=== PATIENT | female | born 1990 | race Caucasian/White ===

== ENCOUNTER 2018-02-05 16:59 | Inpatient (IN) ==
--- OUTSIDE RECORDS SUMMARY | 2018-02-05 17:05 | External Medical Summary | Continuity of Care Document ---
:1990 Author Organization [facility] Address [address] [place], [place] [address] Phone Care Team Providers Name Role Phone Daniel Joshua MD Unavailable Unavailable Allergies, Adverse Reactions, Alerts Substance Reaction Severity Status Sulfa (Sulfonamide Antibiotics) Unknown Active Medications Medication Instructions Dosage Effective Dates Status Comments (start - stop) 28 mg-0.8 take 1 Tablet by 5 MG - Active mg tablet ORAL route every day days 1-10 of cycle cephalexin 500 mg take 1 capsule by - No Longer capsule ORAL route 3 times Active every day for 7 days Problems Condition Effective Dates (start - stop) Clinical Status Follow-Up, Routine - Encntr screen for infections w sexl - mode of transmiss Encounter for screening for oth - infec/parastc diseases Encounter for suprvsn of normal - , first trimester Encounter for screening of - mother 10 weeks gestation of - Initiation of Oral Contraceptives - Active Irregular Bleeding Active Active Procedures Procedure Date Unknown Results Test Name Date and Time Measure Units Reference Range Abnormal Flag Comments Unknown Advance Directives Directive Yes / No Effective Date File Name Unknown Encounters Encounter Practice Location Reason(s) Diagnoses Date Provider Care Team Description For Visit Members Associates Rc Michelle In [facility] 8-201 [facility] [place], 7 700 [address] [place], [place], 120, [id number], [place], [place], tel: [phone] , [place]. tel: [phone] Jennifer Tatum Encntr screen for Aug-1 Michelle Referring In Womens infections w sexl 6-201 Tammy. Provider: Alysia LAYTON, mode of 7 700 Justine PO Box [facility], 700 1522, for screening for Kendall Rigoberto Terry, les infec/parastc , [facility] [address], [facility] 120, [place] 120, , for suprvsn of Rc Tatum, normal , [place], [place], tel: first [phone]. [facility] , . tel: for tel: [phone] screening of [id number] weeks gestation of Associates Rc Stan-0 Michelle Referring In Womens Follow-Up, Routine - Tammy. Provider: Alysia LAYTON, 6 700 Justine PO Box [facility] [place]c, 700 1522, [place] [address], [facility] Dr [place], 120, [place] 120, [id number], Rc Tatum, [place], [place], tel: [phone]. , [place]. tel: tel: [phone] Jennifer Tatum Aug- Michelle Referring In Womens 4-201 Tammy. Provider: Alysia LAYTON, 5 700 Tammy [address] Medical Michelle L, 1522, [address], [facility] [place], 120, Kend[place] [id number], Rc [facility] 120, Rc [place], tel: [phone] [place], , . [id number]. tel: tel: [phone] Jennifer Tatum Sep-2 Michelle Referring In Womens 9-201 Tammy. Provider: Alysia LAYTON, 5 700 Tammy [address] Medical Michelle L, 1522, [place] [address], [facility] [place], 120, Kend[place] [id number], Rc [facility] 120, [place] Rc [place], tel: [phone] [place], , . [id number]. tel: tel: [phone] Jennifer Tatum Mar-2 Michelle Referring In Womens 8-201 Tammy. Provider: Alysia LAYTON, 5 700 Justine PO Box Medical Jc, 700 1522, [place] [address], [facility] Center [address] HOP[place], 120, [place] 120, [id number], Rc Tatum, [place], [place], tel: [phone]. , . tel: tel: [phone] Jennifer Tatum Mar-0 Jc Referring In Womens 7-201 Justine. Provider: Alysia LAYTON, 4 700 Justine PO Box Medical Jc, 700 1522, [place] [address], [facility] Dr [place], 120, [place] 120, [id number], Rc Tatum, [place], [place], tel: [phone]. , . tel: tel: [phone] Family History Family Member Diagnosis Age At Onset No family history of Cardiovascular Disease No family history of Kidney Problems No family history of Ovarian Cancer No family history of Diabetes No family history of Pulmonary Embolism No family history of Lung Disease No family history of Uterine Cancer Maternal Grandmother Thyroid Disorder No family history of Epilepsy Close relative Cancer, breast No family history of Osteoporosis No family history of Stroke No family history of Colon Cancer No family history of Hypertension No family history of Venous Thrombosis Immunizations Vaccine Date Status Comments Influenza, seasonal, injectable, completed Source: New Immunization Record preservative free, 3 yrs or older Tdap completed Source: New Immunization Record Payers Payer name Insurance type Covered green party ID Authorization(s) ANNALEE SALMON [id number] [facility] [place] BL [id number] [facility] [place] SALMON [id number] Social History Type Description Quantity Date Captured Unknown Vital Signs Date / Height Weight BMI Pulse Blood Temperature Respiratory Body Head BMI Time: Rate Pressure Rate Surface Circumference percentile Area Unknown Chief Complaint And Reason For Visit Unknown Chief Complaint And Reason For Visit Reason For Referral Reason For Referral Unknown Plan Of Care Date Type Action Status Appointment Emily Rich BOOKED Future Order: Lab Order Pap Smear With HPV Reflex If ASCUS Ordered ([id number]) Date Type Problem Goal Intervention Status Start Date Unknown. History Of Present Illness Encounter Date Complaint History Of Present Illness This patient has no known history of present illness Functional Status Encounter Date Functional Assessment Cognitive Assessment Unknown Medications Administered Medication Instructions Dosage Effective Dates (start - stop) Status Comments Drug Treatment Unknown Instructions Date Instruction Additional Information HIV and other routine tests influenza vaccine environmental / work hazards travel use of any medications (including supplements, vitamins, herbs, OTC drugs) domestic violence seat belt use risk factors identified by history anticipated course of care nutrition and weight gain counseling, special diet toxoplasmosis precautions (cats / raw meat) sexual activity exercise indications for ultrasound childbirth classes / hospital facilities hospital registration genetic testing new ob handbook Zika virus assessment & precautions HIV and other routine tests influenza vaccine environmental / work hazards risk factors identified by history anticipated course of care nutrition and weight gain counseling, special diet toxoplasmosis precautions (cats / raw meat) sexual activity exercise indications for ultrasound travel use of any medications (including supplements, vitamins, herbs, OTC drugs) seat belt use childbirth classes / hospital facilities hospital registration genetic testing new ob handbook
--- OUTSIDE RECORDS SUMMARY | 2018-02-05 17:05 | External Medical Summary | Continuity of Care Document ---
:1990 Author Organization [facility] Address [address] [place], [place] [id number] Phone Care Team Providers Name Role Phone Daniel Joshua MD Unavailable Unavailable Allergies, Adverse Reactions, Alerts Substance Reaction Severity Status Sulfa (Sulfonamide Antibiotics) Unknown Active Medications Medication Instructions Dosage Effective Dates Status Comments (start - stop) 28 mg-0.8 mg take 1 Tablet by ORAL 5 MG - Active tablet route every day days 1-10 of cycle Problems Condition Effective Dates (start - stop) Clinical Status Follow-Up, Routine - Encounter for suprvsn of normal - , second trimester 23 weeks gestation of - Encntr screen for infections w sexl - mode of transmiss Encounter for screening for oth - infec/parastc diseases Encounter for suprvsn of normal - , first trimester Encounter for screening of - mother 10 weeks gestation of - Encounter for suprvsn of normal - , second trimester 19 weeks gestation of - Encounter for suprvsn of normal - , second trimester 19 weeks gestation of - Encounter for suprvsn of normal - , second trimester 14 weeks gestation of - Initiation of Oral Contraceptives - Active Irregular Bleeding Active Active Procedures Procedure Date OB Visit No Charge Results Test Name Date and Time Measure Units Reference Range Abnormal Flag Comments Unknown Advance Directives Directive Yes / No Effective Date File Name Unknown Encounters Encounter Practice Location Reason(s) Diagnoses Date Provider Care Team Description For Visit Members Jennifer Tatum Encounter for Nov-1 Michelle Referring In Womens suprvsn of normal 7-201 Tammy. Provider: Alysia LAYTON, , second 7 700 Justine [address] [id number] weeks Medical J[place], 700 1522, gestation of [facility], , [facility] Dr [address], 120, [place] 120, [id number], Rc Tatum, [place], [place], tel: [phone]. , [place]. tel: tel: [phone] Jennifer Tatum Encounter for Oct-1 Michelle Referring In Womens suprvsn of normal 9-201 Tammy. Provider: Alysia LAYTON, , second 7 700 Justine PO Box [id number] weeks Medical Jc, 700 1522, gestation of [facility], , [facility] Dr [place], 120, [place] 120, [id number], Rc Tatum, [place], [place], tel: [phone]. , [place]. tel: tel: [phone] Jennifer Tatum Encounter for Oct-1 Michelle Referring In Womens Ultrasound suprvsn of normal 9-201 Tammy. Provider: Alysia LAYTON, , second 7 700 Justine PO Box [id number] weeks Medical Jc, 700 1522, gestation of [facility], , [facility] Dr [place], 120, [place] 120, [id number], Rc Tatum, [place], [place], tel: [phone]. , [place]. tel: tel: [phone] Jennifer Tatum Encounter for Sep-1 Michelle Referring In Womens suprvsn of normal 4-201 Tammy. Provider: Alysia LAYTON, , second 7 700 Justine PO Box weeks Medical Jc, 700 1522, gestation of [facility], , [facility] Dr [address], 120, [place] 120, [id number], Rc Tatum, [facility], [place], tel: [phone]. , [place]. tel: tel: [phone] Jennifer Tatum Encntr screen for Aug- Michelle Referring In Womens infections w sexl 6-201 Tammy. Provider: Alysia LAYTON, mode of 7 700 Justine PO Box [facility], 700 1522, r for screening [facility] Mara, for oth , [facility] Dr [address]OP[place], infec/parastc 120, [place] 120, , diseasesEncounter Rc [place], for suprvsn of [place], [place], tel: normal , [phone]. [facility] , . tel: trimesterEncounte tel: [phone] r for [id number] screening of [id number] weeks gestation of Jennifer Tatum Stan-0 Michelle Referring In Womens Follow-Up, - Tammy. Provider: Alysia LAYTON, Routine 6 700 Justine PO Box Medical Jc, 700 1522, [place] [address], [facility] Dr [place], 120, [place] 120, [id number], Rc Tatum, [place], tel: [phone]. , [place]. tel: tel: [phone] Jennifer Tatum Aug- Michelle Referring In Womens 4-201 Tammy. Provider: Alysia LAYTON, 5 700 Tammy PO Box Medical Michelle L, 1522, [place] [address], [facility] [place], 120, [place] [id number], Rc [facility] 120, Rc [place], tel:[phone] [place], , . [id number]. tel: tel: [phone] Jennifer Tatum Sep-2 Michelle Referring In Womens 9-201 Tammy. Provider: Alysia LAYTON, 5 700 Tammy PO Box Medical Michelle L, 1522, [place] [address] Dr Mara, [facility], 120, [place] [id number], Rc [facility] 120, Rc [place], tel: [phone] [place], , . [id number]. tel: tel: [phone] Jennifer Tatum Mar-2 Michelle Referring In Womens 8-201 Tammy. Provider: Health CALIN, 5 700 Justine PO Box Medical Jc, 700 1522, [place] [address], [facility] [place], 120, [place] 120, [id number], Rc Tatum, [place], [place], tel: [phone]. , . tel: tel: [phone] Jennifer Tatum Mar-0 Jc Referring In Womens 7-201 Justine. Provider: Health CALIN, 4 700 Justine PO Box Medical Jc, 700 1522, [place] [address], [facility] Dr [place], 120, [place] 120, [id number], Rc Tatum, [place], [place], tel: [phone]. , . tel: tel: [phone] Family History Family Member Diagnosis Age At [...] Thrombosis Immunizations Vaccine Date Status Comments Influenza, injectable, completed Source: New Immunization Record quadrivalent, preservative free, 3 yrs or older Influenza, seasonal, injectable, completed Source: New Immunization Record preservative free, 3 yrs or older Tdap completed Source: New Immunization Record Payers Payer name Insurance type Covered alliance party ID Authorization(s) [facility] [place] BL [id number] [facility] BL [id number] [facility] [place] BL [id number] [facility] [id number] Social History Type Description Quantity Date Captured Alcohol Use Details No Caffeine Use Details Unknown Tobacco Use Status Unknown Smoking Status Never smoker Vital Signs Date / Height Weight BMI Pulse Blood Temperature Respiratory Body Head BMI Time: Rate Pressure Rate Surface Circumference percentile Area 120.00 21.6 /67 2017 lbs 0 mm[Hg] 3:17 kg/m PM eter (2) 8 3:09 kg/m PM eter (2) Chief Complaint And Reason For Visit Unknown Chief Complaint And Reason For Visit Reason For Referral Reason For Referral Unknown Plan Of Care Date Type Action Status Appointment Emily Rich BOOKED Future Order: Lab Order Pap Smear With HPV Reflex If ASCUS Ordered (WPMPap1) Future Order: Radiology Order Complete OB Ultrasound > 14 Ordered Weeks ([id number]) Date Type Problem Goal Intervention Status Start [...]
--- OUTSIDE RECORDS SUMMARY | 2018-02-05 17:05 | External Medical Summary | Continuity of Care Document ---
:1990 Author Organization [facility] Address [address] [place], [place] [phone] Phone Care Team Providers Name Role Phone [...] Irregular Bleeding Active Active Procedures Procedure Date Initial OB Visit No Charge - FARMWORK[facility] DAIRY OB Panel With An HIV Venpnctr fngr/heel/ear stick routne Urine Culture Infct antign, chlamydia trac, ampl Neisseria Gonorrhoeae, Amplification Cult, bactr, ident isolate, urine Culture typing, immunologic method Results Test Name Date and Time Measure Units Reference Range Abnormal Flag Comments Panel Description: OBSTETRIC PANEL WHITE BLOOD CELL 16.7 Thousand/uL 3.8-10.8 H COUNT 16:25:00 RED BLOOD CELL 4.28 Million/uL 3.80-5.10 N COUNT 16:25:00 HEMOGLOBIN 12.9 g/dL 11.7-15.5 N 16:25:00 HEMATOCRIT 38.1 % 35.0-45.0 N 16:25:00 MCV 89.0 fL 80.0-100.0 N 16:25:00 MCH 30.1 pg 27.0-33.0 N 16:25:00 MCHC 33.9 g/dL 32.0-36.0 N 16:25:00 RDW 12.4 % 11.0-15.0 N 16:25:00 PLATELET COUNT 333 Thousand/uL 140-400 N 16:25:00 MPV 11.1 fL 7.5-12.5 N 16:25:00 ABSOLUTE 00731 cells/uL 2313-1624 H NEUTROPHILS 16:25:00 ABSOLUTE 3323 cells/uL 850-3900 N LYMPHOCYTES 16:25:00 ABSOLUTE 1035 cells/uL 200-950 H MONOCYTES 16:25:00 ABSOLUTE 518 cells/uL 15-500 H EOSINOPHILS 16:25:00 ABSOLUTE 84 cells/uL 0-200 N BASOPHILS 16:25:00 NEUTROPHILS 70.3 % N 16:25:00 LYMPHOCYTES 19.9 % N 16:25:00 MONOCYTES 6.2 % N 16:25:00 EOSINOPHILS 3.1 % N 16:25:00 BASOPHILS 0.5 % N 16:25:00 ANTIBODY SCREEN, NO ANTIBODIES N RBC W/REFL ID, 16:25:00 DETECTED Reference range TITER AND AG No antibodies detected This assay is a screening test for the detection of red blood cell antibodies. The test is not to be used for pretransfusion screening or for the medical management of an alloimmunized . ABO GROUP A 16:25:00 RH TYPE RH(D) 16:25:00 POSITIVE RPR (DX) W/REFL NON-REACTIVE NON-REACTIV N TITER AND 16:25:00 E CONFIRMATORY TESTING HEPATITIS B NON-REACTIVE NON-REACTIV N SURFACE ANTIGEN 16:25:00 E RUBELLA ANTIBODY 2.81 index N Index (IGG) 16:25:00 Interpretation ----- <0.90 Not consistent with Immunity 0.90-0.99 Equivocal > or=1.00 Consistent with Immunity The presence of rubella IgG antibody suggests immunization or past or current infection withrubella virus.Test performed at [facility] [id number] [place] [address]Enniwxq r: JAE HE DO,MPH Panel Description: HIV 1/2 ANTIGEN/ANTIBODY,FOURTH GENERATION W/RFL HIV NON-REACTIVE NON-REACTIVE N HIV-1 antigen and HIV-1/HIV- 2 antibodies were AG/AB, 16:25:00 notdetected. There is no laboratory evidence of 4TH GEN HIVinfection. PLEASE NOTE: This information has been disclosed toyou from records whose confidentiality may beprotected by state law. If your state requires suchprotection, then the state law prohibits you frommaking any further disclosure of the informationwithout the specific written consent of the personto whom it pertains, or as otherwise permitted by law.A general authorization for the release of medical orother information is NOT sufficient for this purpose. For additional information please refer [email or web address]/faq/HGM937(This link is being provided for informational/educational purposes only.) The performance of this assay has not been clinicallyvalidated in patients less than 2 years old. REPORT COMMENT:FASTING:NOTest performed at [facility] [id number] [place] [address]Lkwseoid: JAE HE DO,MPH Panel Description: Bacteria identified in Urine by Culture CULTURE, URINE, 16:52:00 SEE NOTE A CULTURE, URINE, ROUTINE ROUTINE MICRO NUMBER: [id number] TEST STATUS: FINAL SPECIMEN SOURCE: URINE SPECIMEN QUALITY: ADEQUATE RESULT: 1,000-10,000 CFU/mL of Group B Streptococcus isolated Beta-hemolytic Streptococci are predictably susceptible to penicillin and other beta-lactams. Susceptibility testing not routinely performed. COMMENT: Erythromycin and clindamycin are not recommended for treatment of urinary tract infections, but clindamycin may be useful for treatment of rectovaginal colonization or infection. Any amount of group B Streptococcus in urine specimens obtained from females is a marker of genital tract colonization. If this patient is , please refer to ACOG guidelines for appropriate screening and management of women.REPORT COMMENT:RTest performed at [facility] [address] [address]Fluiydcl: JAE HE DO,MPH Panel Description: CHLAMYDIA/N. GONORRHOEAE RNA, TMA CHLAMYDIA NOT DETECTED NOT DETECTED N TRACHOMATIS RNA, 16:31:00 TMA NEISSERIA NOT DETECTED NOT DETECTED N GONORRHOEAE RNA, 16:31:00 TMA [id number] SEE NOTE This test was 16:31:00 performed using the APTIMA COMBO2 Assay([employer] The analytical performance characteristics of this assay, when used to test SurePath specimens havebeen determined by [employer]. Test performed at [facility] [address] [address]Wexflndp: JAE HE DO,MPH Panel Description: Pap Smear With HPV Reflex If ASCUS Document Advance Directives Directive Yes / No Effective Date File Name Unknown Encounters Encounter Practice Location Reason(s) Diagnoses Date Provider Care Team Description For Visit Members Associates Rc Armas screen for Michelle Referring In Womens infections w sexl 6-201 Tammy. Provider: [facility], mode of 7 700 Justine PO Box [facility], 370 0162, for screening for [facility], [facility] infec/parastc , [facility] Dr [place], [facility] 120, [place] 120, [id number], for suprvsn of Rc Tatum, normal , [place], [place], tel:[phone]. [id number] [facility]. tel: for tel: [phone] screening of [id number] weeks gestation of Associates Rc Stan-0 Michelle Referring In Womens Follow-Up, Routine 5-201 Tammy. Provider: Alysia LAYTON, 6 700 Justine PO Box Medical [place]c, 700 1522, [place] [address], [facility] [place], 120, [place] 120, [id number], Rc Tatum, [facility], [place], tel: [phone]. , [place]. tel: tel: [phone] Jennifer Tatum Oct-1 Michelle Referring In Womens 4-201 Tammy. Provider: Alysia LAYTON, 5 700 Tammy PO Box Medical Michelle L, 1522, [address] [facility] [address] Mara, [place], 120, [place] [id number], Rc, [facility] [place] 120, Rc [place], tel: [phone] [place], , [place]. [id number]. tel: tel: [phone] Jennifer Tatum Sep-2 Michelle Referring In Womens 9-201 Tammy. Provider: Alysia LAYTON, 5 700 Tammy PO Box Medical Michelle L, 1522, [address] [facility] [address] Mara, [place], 120, [place] [id number], Rc, [facility], [place] 120, [place] Rc [place], tel: [phone] [place], , [place]. [id number]. tel: tel: [phone] Jennifer Tatum Apr-2 Michelle Referring In Womens 8-201 Tammy. Provider: Health CALIN, 5 700 Justine PO Box Medical [place]c, 700 1522, [place] [address], [facility] [place], 120, [place] 120, [id number], Rc Tatum, [place], [place], tel: [phone]. , . tel: tel: [phone] Jennifer Tatum Apr-0 Jc Referring In Womens 7-201 Justine. Provider: Health CALIN, 4 700 Justine PO [facility] Jc, 700 1522, [place] Medical Dr Mara, [facility] Dr [place], 120, [place] 120, [id number], Rc Tatum, [place], tel: [phone]. [id number] , [place]. tel: tel: [phone] Family History Family Member Diagnosis Age At [...] Record Payers Payer name Insurance type Covered constitution party ID Authorization(s) [facility] BL [id number] [facility] BL [id number] [facility] BL [id number] Social History Type Description Quantity Date Captured Alcohol Use Details No Caffeine Use Details combo 3x per week per day Tobacco Use Status Never smoked tobacco Smoking Status Never smoker Non-Smoking Tobacco Use : No Details Available : No Details Available Details Vital Signs Date / Height Weight BMI Pulse Blood Temperature Respiratory Body Head BMI Time: Rate Pressure Rate Surface Circumference percentile Area 106.10 19.0 lbs 9 mm[Hg] 3:57 kg/m PM eter (2) Chief Complaint And [...]
--- OUTSIDE RECORDS SUMMARY | 2018-02-05 17:05 | External Medical Summary | Continuity of Care Document ---
:1990 Author Organization [facility] [employer] [facility] Address [address] [place], [place] [phone] Phone Care Team Providers Name Role Phone [...] second trimester 14 weeks gestation of - Encntr screen for [...] For Visit Members Jennifer Tatum Encounter for Michelle Referring In [facility] suprvsn of normal 4-201 Tammy. Provider: Health PA, , second 7 700 Justine [address] [id number] weeks Medical Jc, 700 1522, gestation of [place] Rigoberto Terry, , [facility] Dr HOP[place], 120, [place] 120, [id number], Rc Tatum, [place], [place], tel: [phone]. , . tel: tel: [phone] Jennifer Tatum Encntr screen for Aug-1 Michelle Referring In Womens infections w sexl 6-201 Tammy. Provider: Alysia LAYTON, mode of 7 700 Justine PO Box [facility]c, 700 1522, for screening for [facility] Mara, ot infec/parastc , [facility] Dr HOP[place], [facility] 120, [place] 120, , for suprvsn of Rc Tatum, normal , [place], [place], tel: first [phone]. [facility]. tel: for tel: [phone] screening of [id number] weeks gestation of Associates Rc Stan-0 Michelle Referring In Womens Follow-Up, Routine 5-201 Tammy. Provider: Alysia LAYTON, 6 700 Justine PO Box Medical Jc, 700 1522, [place] [address], [facility] Dr H[place], 120, [place] 120, [id number], Rc Tatum, [place], tel: [phone]. , [place]. tel: tel: [phone] Jennifer Tatum Oct-1 Michelle Referring In Womens 4-201 Tammy. Provider: Alysia LAYTON, 5 700 Tammy PO Box Medical Michelle L, 1522, [place] [address], [facility] [place], 120, [place] [id number], Rc, [facility] 120, [place] Rc [place], tel: [phone] [place], , . [id number]. tel: tel: [phone] Jennifer Tatum Sep-2 Michelle Referring In Womens 9-201 Tammy. Provider: Health CALIN, 5 700 Tammy PO Box Medical Michelle L, 1522, Center [facility] Dr Mara, [facility] Medical [place], 120, [place] [id number], Rc [place] [id number], Rc [place], tel: [phone] [place], , . [id number]. tel: tel: [phone] Associates Rc Mar-2 Michelle Referring In Womens 8-201 Tammy. Provider: Health CALIN, 5 700 Justine PO Box Medical Jc, 700 1522, [place] [facility] Dr Mara, [facility] [place], 120, [place] 120, [id number], Rc [place], [place], [place], tel: [phone]. , . tel: tel: [phone] Jennifer Tatum Mar-0 Jc Referring In Womens 7-201 Justine. Provider: Alysia LAYTON, 4 700 Justine PO Box Medical Jc, 700 1522, [place] [address], [facility] Dr H[place], 120, [place] 120, [id number], Rc Tatum, [place], [place], tel: [phone]. , . tel: tel: [phone] Family History Family Member Diagnosis Age At [...] Record Payers Payer name Insurance type Covered libertarian ID Authorization(s) [facility] [place] BL [id number] [facility] BL [id number] [facility] BL [id number] Social History Type Description Quantity Date Captured Alcohol Use Details No Caffeine Use Details Unknown Tobacco Use Status Unknown Smoking Status Never smoker Vital Signs Date / Height Weight BMI Pulse Blood Temperature Respiratory Body Head BMI Time: Rate Pressure Rate Surface Circumference percentile Area .0 9 3:41 kg/m PM eter (2) 109.30 19.6 103/67 -2017 lbs 7 mm[Hg] 3:53 kg/m PM eter (2) Chief Complaint And Reason For Visit Unknown Chief Complaint And Reason For Visit Reason For Referral Reason For Referral Unknown Plan Of Care Date Type Action Status Appointment Emily Rich BOOKED Appointment Emily Rich BOOKED Future Order: Lab [...] identified by history anticipated course of care Apr-28-2015 nutrition and weight gain counseling, special diet toxoplasmosis precautions (cats / raw meat) sexual activity exercise indications for ultrasound travel use of any medications (including supplements, vitamins, herbs, OTC drugs) seat belt use childbirth classes / hospital facilities hospital registration genetic testing new ob handbook
--- OUTSIDE RECORDS SUMMARY | 2018-02-05 17:05 | External Medical Summary | Continuity of Care Document ---
:1990 Author Organization [facility] [employer] [facility] Address [address] [place], [place] [phone] Phone Care Team Providers Name Role Phone [...] Encounter for suprvsn of normal - , third trimester 31 weeks gestation of - Encntr screen for infections w sexl - mode of transmiss Encounter for screening for oth - infec/parastc diseases Encounter for suprvsn of normal - , first trimester Encounter for screening of - mother 10 weeks gestation of - Encounter for suprvsn of normal - , second trimester 27 weeks gestation of - Encounter for suprvsn of normal - , second trimester 19 weeks gestation of - Encounter for suprvsn of normal - , second trimester 19 weeks gestation of - Encounter for suprvsn of normal - , second trimester 23 weeks gestation of - Encounter for suprvsn of normal - , second trimester 14 weeks gestation of - Encounter for suprvsn of normal - , third trimester 32 weeks gestation of - Encounter for suprvsn of normal - , third trimester 32 weeks gestation of - Initiation of Oral [...] For Visit Members Jennifer Tatum Encounter for Dec- Michelle Referring In Womens suprvsn of normal 2-201 Tammy. Provider: Alysia LAYTON, , third 8 700 Justine PO Box [id number] weeks Medical Jc, 700 1522, gestation of [facility], , [facility] Dr HOP[place], 120, [place] 120, [id number], Rc Tatum, [facility], [place], tel: [phone]. , [place]. tel: tel: [phone] Jennifer Tatum Encounter for Dec- Michelle Referring In Womens Ultrasound suprvsn of normal 2-201 Tammy. Provider: Alysia LAYTON, , third 8 700 Justine PO Box [id number] weeks Medical Jc, 700 1522, gestation of [facility], Dr [facility] Dr H[place], 120, [place] 120, [id number], Rc Tatum, [facility], [place], tel: [phone]. , [place]. tel: tel: [phone] Jennifer Tatum Encounter for Dec- Michelle Referring In Womens suprvsn of normal 2-201 Tammy. Provider: Alysia LAYTON, , third 8 700 Justine PO Box [id number] weeks Medical Jc, 700 1522, gestation of [facility], Dr [facility] Dr [place], 120, [place] 120, [id number], Rc Tatum, [facility], [place], tel: [phone]. , [place]. tel: tel: [phone] Jennifer Tatum Encounter for Dec-1 Michelle Referring In Womens suprvsn of normal 8-201 Tammy. Provider: Health CALIN, , second 7 700 Justine PO Box weeks Medical Jc, 700 1522, gestation of [facility], , [facility] Dr [place], 120, [place] 120, [id number], Rc Tatum, [facility], [place], tel: [phone]. , [place]. tel: tel: [phone] Jennifer Tatum Encounter for Nov-1 Michelle Referring In Womens suprvsn of normal 7-201 Tammy. Provider: Health CALIN, , second 7 700 Justine PO Box [email or web address] weeks Medical Jc, 700 1522, gestation of [facility], , [facility] Dr [place], 120, [place] 120, [id number], Rc Tatum, [facility], [place], tel: [phone]. , [place]. tel: tel: [phone] Jennifer Tatum Encounter for Oct-1 Michelle Referring In Womens suprvsn of normal 9-201 Tammy. Provider: Health CALIN, , second 7 700 Justine PO Box [id number] weeks Medical Jc, 700 1522, gestation of [facility], , [facility] Center Dr HOPPER, 120, [place] 120, [id number], Rc Tatum, [facility], [place], tel: [phone]. , [place]. tel: tel: [phone] Jennifer Tatum Encounter for Oct-1 Michelle Referring In Womens Ultrasound suprvsn of normal 9-201 Tammy. Provider: Health CALIN, , second 7 700 Justine PO Box [id number] weeks Medical Jc, 700 1522, gestation of [facility], , [facility] Center Dr HOP[place], 120, [place] 120, , Rc Tatum, [facility], [place], tel: [phone]. , [place]. tel: tel: [phone] Jennifer Tatum Encounter for Sep-1 Michelle Referring In Womens suprvsn of normal 4-201 Tammy. Provider: Alysia LAYTON, , second 7 700 Justine PO Box [id number] weeks Medical Jc, 700 1522, gestation of [facility] Mara, , [facility] Dr HOP[place], 120, [place] 120, [id number], Rc Tatum, [facility], [place], tel:[phone]. , [place]. tel: tel: [phone] Jennifer Tatum Encntr screen for Aug-1 Michelle Referring In Womens infections w sexl 6-201 Tammy. Provider: Alysia LAYTON, mode of 7 700 Justine PO Box transmissEncounte Medical Jc, 700 1522, r for screening [facility], for oth , [facility] Dr H[place], infec/parastc 120, [place] 120, , diseasesEncounter Rc [place], for suprvsn of [place], [place], tel: normal , [phone]. [facility] , [place]. tel: trimesterEncounte tel: [phone] r for [id number] screening of [id number] weeks gestation of Jennifer Tatum Stan-0 Michelle Referring In Womens Follow-Up, 5-201 Tammy. Provider: Alysia LAYTON, Routine 6 700 Justine PO Box Medical Jc, 700 1522, [facility] Dr Mara, [facility] Dr [place], 120, [place] 120, [id number], Rc Tatum, [facility], [place], tel:[phone]. , [place]. tel: tel: [phone] Jennifer Tatum Oct-1 Michelle Referring In Womens 4-201 Tammy. Provider: Alysia LAYTON, 5 700 Tammy PO Box Medical Michelle L, 1522, Center [address] Mara, [facility] Medical [place], 120, Center [id number], Rc, [facility] 120, Rc [place], tel:[phone] [place], , . [id number]. tel: tel: [phone] Associates Rc Sep-2 Michelle Referring In Womens 9-201 Tammy. Provider: Alysia LAYTON, 5 700 Tammy PO Box Medical Michelle L, 1522, Center [facility] Dr Mara, [facility] [place], 120, [place] [id number], Rc, [facility] 120, Rc [place], tel: [phone] [place], , . [id number]. tel: tel: [phone] Jennifer Tatum Apr-2 Michelle Referring In Womens 8-201 Tammy. Provider: Alysia LAYTON, 5 700 Justine PO Box Medical Jc, 700 1522, [place] [address], [facility] Dr [place], 120, [place] 120, [id number], Rc Tatum, [facility], [place], tel: [phone]. , [place]. tel: tel: [phone] Jennifer Tatum Apr-0 Jc Referring In Womens 7-201 Justine. Provider: Alysia LAYTON, 4 700 Justine PO Box Medical Jc, 700 1522, [place] [address], [facility] Dr [place], 120, [place] 120, [id number], Rc [place], [place], [place], tel: [phone]. , [place]. tel: tel: [phone] Family History Family Member Diagnosis Age At [...] Record Payers Payer name Insurance type Covered republican ID Authorization(s) [facility] [id number] [facility] [id number] [facility] BL [id number] [facility] [id number] Social History Type Description Quantity Date Captured Alcohol Use Details No Caffeine Use Details Unknown Tobacco Use Status Unknown Smoking Status Never smoker Vital Signs Date / Height Weight BMI Pulse Blood Temperature Respiratory Body Head BMI Time: Rate Pressure Rate Surface Circumference percentile Area 128.70 23.1 lbs 6 mm[Hg] 1:14 kg/m PM eter (2) Chief Complaint And Reason For Visit Unknown Chief Complaint And Reason For Visit Reason For Referral Reason For Referral Unknown Plan Of Care Date Type Action Status Appointment Emily Rich BOOKED Appointment Emily Rich BOOKED Future Order: Lab Order Pap Smear With HPV Reflex If ASCUS Ordered ([id number]) Future Order: Radiology Order Complete OB Ultrasound > 14 Ordered Weeks ([id number]) Future Order: Radiology Order Ultrasound OB Follow-up ([id number]) Ordered Date Type Problem Goal Intervention Status Start [...]
--- OUTSIDE RECORDS SUMMARY | 2018-02-05 17:06 | External Medical Summary | Continuity of Care Document ---
:1990 Author Organization [facility] [facility] Address [address] [place], [place] [phone] Phone Care Team Providers Name Role Phone [...] second trimester 19 weeks gestation of - Encntr screen for [...] Irregular Bleeding Active Active Procedures Procedure Date Ultrasound exam of preg uterus, complete Results Test Name Date and Time Measure Units Reference Range Abnormal Flag Comments Unknown Advance Directives Directive Yes / No Effective Date File Name Unknown Encounters Encounter Practice Location Reason(s) Diagnoses Date Provider Care Team Description For Visit Members Jennifer Tatum Encounter for Oct-1 Michelle Referring In Womens suprvsn of normal 9-201 Tammy. Provider: Alysia LAYTON, , second 7 700 Justine PO Box [id number] weeks Medical Jc, 700 1522, gestation of [facility], , [facility] Dr HOPPER, 120, [place] 120, , Rc Tatum, [place], tel: [phone]. , [place]. tel: tel: [phone] Jennifer Tatum Encounter for Oct-1 Michelle Referring In Womens Ultrasound suprvsn of normal 9-201 Tammy. Provider: Alysia LAYTON, , second 7 700 Justine PO Box [id number] weeks Medical Jc, 700 1522, gestation of [facility], , [facility] Dr HOPPER, 120, [place] 120, [id number], Rc Tatum, [place], tel: [phone]. , [place]. tel: tel: [phone] Jennifer Tatum Encounter for Sep-1 Michelle Referring In Womens suprvsn of normal 4-201 Tammy. Provider: Alysia LAYTON, , second 7 700 Justine PO Box [id number] weeks Medical Jc, 700 1522, gestation of [facility], , [facility] Dr HOP[place], 120, [place] 120, [id number], Rc Tatum, [place], tel: [phone]. , [place]. tel: tel: [phone] Jennifer Tatum Encntr screen for Aug-1 Michelle Referring In Womens infections w sexl 6-201 Tammy. Provider: Alysia LAYTON, mode of 7 700 Justine PO Box transmissEncounte Medical Jc, 700 1522, r for screening [facility], for oth , [facility] Dr HOPPER, infec/parastc 120, [place] 120, [id number], diseasesEncounter Rc Tatum, for suprvsn of [place], [place], tel: normal , [phone]. [facility] , . tel: trimesterEncounte tel: [phone] r for [phone] screening of [id number] weeks gestation of Associates Rc Stan-0 Michelle Referring In Womens Follow-Up, 5-201 Tammy. Provider: Alysia LAYTON, Routine 6 700 Justine Box Medical Jc, 700 1522, [place] [address], [facility] [place], 120, [place] 120, [id number], Rc [place], [place], [place], tel: [phone]. , [place]. tel: tel: [phone] Jennifer Tatum Aug- Michelle Referring In Womens 4-201 Tammy. Provider: Alysia LAYTON, 5 700 Tammy Box Medical Michelle L, 1522, Center [address], [facility] [place], 120, [place] [id number], Rc, [facility], Rc [place], tel: [phone] [place], , . [id number]. tel: tel: [phone] Jennifer Tatum Sep-2 Michelle Referring In Womens 9-201 Tammy. Provider: Alysia LAYTON, 5 700 Tammy [facility] Medical Michelle L, 1522, Center [address], [facility] [place], 120, [place] [id number], Rc, [facility], Rc [place], tel: [phone] [place], , [place]. [id number]. tel: tel: [phone] Jennifer Tatum Mar- Michelle Referring In Womens 8-201 Tammy. Provider: Alysia LAYTON, 5 700 Justine PO Box Medical Jc, 700 1522, [place] [address], [facility] Dr HOP[place], 120, [place] 120, [id number], Rc [place], [place], [place], tel:[phone]. , . tel: tel: [phone] Jennifer Tatum Jc Referring In Womens 7-201 Justine. Provider: Alysia LAYTON, 4 700 Justine PO Box Medical Jc, 700 1522, [place] [facility] Dr Mara, [place], 120, [place] 120, [id number], Rc Tatum, [place], tel: [phone]. , . tel: tel: [phone] Family History Family Member Diagnosis Age At [...] name Insurance type Covered republican ID Authorization(s) [facility] BL [id number] [facility] [place] BL [id number] [facility] [place] BL [id number] [facility] BL [id number] Social History Type Description Quantity Date Captured [...] Status Appointment Emily Rich BOOKED Future Order: Radiology Order Complete OB Ultrasound > 14 Ordered Weeks ([id number]) Future Order: Lab Order Pap Smear With [...]
--- OUTSIDE RECORDS SUMMARY | 2018-02-05 17:06 | External Medical Summary | Continuity of Care Document ---
:1990 Author Organization [facility] [employer] [facility] Address [address] [place], [place] [phone] Phone Care Team Providers Name Role Phone [...] second trimester 27 weeks gestation of - Encntr screen for [...] Procedures Procedure Date OB Visit No Charge Hemoglobin count, colorimetric Hematocrit blood count Glucose test Venpnctr fngr/heel/ear stick routne Results Test Name Date and Time Measure Units Reference Range Abnormal Flag Comments Panel Description: Glucose [Mass/volume] in Serum or Plasma --1 hour post 50 g glucose PO GLUCOSE, GESTATIONAL 84 mg/dL <140 N Test performed at [facility] SCREEN (50G)-140 09:52:00 DIAGNOSTICS [id number] [place] [address]Qqhcogme: JAE HE DO,MPH Panel Description: HEMOGLOBIN + HEMATOCRIT HEMOGLOBIN 09:52:00 11.8 g/dL 11.7-15.5 N HEMATOCRIT 09:52:00 36.7 % 35.0-45.0 N REPORT COMMENT:FASTING :NOTest performed at [employer] [id number] [place] [address]Ldwwxbjn: JAE EH DO,MPH Advance Directives Directive Yes / No Effective Date File Name Unknown Encounters Encounter Practice Location Reason(s) Diagnoses Date Provider Care Team Description For Visit Members Jennifer Tatum Encounter for Michelle Referring In Women suprvsn of normal 8-201 Tammy. Provider: Health CALIN, , second 7 700 Justine PO Box [email or web address] weeks Medical Jc, 700 1522, gestation of [facility], , [facility] Dr [place], 120, [place] 120, [id number], Rc Tatum, [place], tel:[phone]. [id number] , [place]. tel: tel: [phone] Jennifer Tatum Encounter for Michelle Referring In Womens suprvsn of normal 7-201 Tammy. Provider: Health CALIN, , second 7 700 Justine PO Box [id number] weeks Medical Jc, 700 1522, gestation of [facility], , [facility] Dr [place], 120, [place] 120, [id number], Rc Tatum, [facility], [place], tel: [phone]. , [place]. tel: tel: [phone] Jennifer Tatum Encounter for Oct-1 Michelle Referring In Womens suprvsn of normal 9-201 Tammy. Provider: Alysia LAYTON, , second 7 700 Justine PO Box weeks Medical Jc, 700 1522, gestation of [facility], , [facility] Dr [place], 120, [place] 120, [id number], Rc T[place], [place], [place], tel: [phone]. , [place]. tel: tel: [phone] Jennifer Tatum Encounter for Oct-1 Michelle Referring In Womens Ultrasound suprvsn of normal 9-201 Tammy. Provider: Alysia LAYTON, , second 7 700 Justine PO Box [id number] weeks Medical Jc, 700 1522, gestation of [facility], , [facility] Dr [place], 120, [place] 120, [id number], Rc Tatum, [facility], [place], tel: [phone]. , [place]. tel: tel: [phone] Jennifer Tatum Encounter for Sep-1 Michelle Referring In Womens suprvsn of normal 4-201 Tammy. Provider: Alysia LAYTON, , second 7 700 Justine PO Box [id number] weeks Medical Jc, 700 1522, gestation of [facility], , [facility] Dr [place], 120, [place] 120, [id number], Rc [place], [place], [place], tel: [phone]. , [place]. tel: tel: [phone] Jennifer Tatum Encntr screen for Aug-1 Michelle Referring In Womens infections w sexl 6-201 Tammy. Provider: Alysia LAYTON, mode of 7 700 Justine PO Box transmissEncounte Medical Jc, 700 1522, r for screening [facility], [facility] Dr [place], infec/parastc 120, [place] 120, [id number], diseasesEncounter Rc T[place], for suprvsn of [place], [place], tel: normal , [phone]. [facility] , [place]. tel: trimesterEncounte tel: [phone] r for [phone] screening of [id number] weeks gestation of Associates Rc Stan-0 Michelle Referring In Womens Follow-Up, 5-201 Tammy. Provider: Alysia LAYTON, Routine 6 700 Justine PO Box Medical Jc, 700 1522, [place] [address], [facility] Dr [place], 120, [place] 120, [id number], Rc Tatum, [place], tel: [phone]. , [place]. tel: tel: [phone] Jennifer Tatum Aug- Michelle Referring In Womens 4-201 Tammy. Provider: Alysia LAYTON, 5 700 Tammy PO Box Medical Michelle L, 1522, Center [facility] Dr Mara, [facility] [place], 120, [place] [id number], Rc, [facility] 120, [place] Rc [place], tel: [phone] [place], , [place]. [id number]. tel: tel: [phone] Jennifer Tatum Aug- Michelle Referring In Womens 9-201 Tammy. Provider: Alysia LAYTON, 5 700 Tammy PO Box Medical Michelle L, 1522, Center [address], [facility] Medical [place], 120, [place] [id number], Rc, [facility] 120, [place] Rc [place], tel: [phone] [place], , [place]. [id number]. tel: tel: [phone] Jennifer Tatum Mar- Michelle Referring In Womens 8-201 Tammy. Provider: Alysia LAYTON, 5 700 Justine PO Box Medical Jc, 700 1522, [place] [address], [facility] Dr [place], 120, [place] 120, [id number], Rc Tatum, [place], [place], tel: [phone]. , . tel: tel: [phone] Jennifer Tatum Mar-0 Jc Referring In Womens 7-201 Justine. Provider: [facility], 4 700 Justine [facility] Medical Jc, 700 1522, [place] Rigoberto Terry, , [facility] Dr [place], 120, [place] 120, [id number], Rc Tatum, [place], [place], tel: [phone]. , . tel: tel: [phone] Family History Family Member Diagnosis Age At [...] name Insurance type Covered libertarian ID Authorization(s) [facility] [id number] [facility] [id number] [facility] [id number] [facility] [id number] Social History Type Description Quantity Date Captured [...] Emily Rich BOOKED Appointment Emily Rich BOOKED Appointment Emily Rich BOOKED Appointment Emily Rich BOOKED Future Order: Lab Order Pap Smear With HPV Reflex If ASCUS Ordered (WPMPap1) Future Order: Radiology Order Complete OB Ultrasound > 14 Ordered Weeks ([id number]) Date Type Problem Goal Intervention Status Start [...]
--- OUTSIDE RECORDS SUMMARY | 2018-02-05 17:06 | External Medical Summary | Continuity of Care Document ---
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 10/11/2015 Tammy Martinez O36.5930 Matern care for oth or susp poor fetl grth, third tri, unsp 10/11/2015 Tammy Martinez Z3A.38 38 weeks gestation of 09/18/2017 Tammy Martinez Z34.82 Encounter for suprvsn of normal , second trimester 09/18/2017 Tammy Martinez Z3A.19 19 weeks gestation of 09/18/2017 Tammy Martinez Z34.82 Encounter for suprvsn of normal , second trimester 09/18/2017 Tammy Martinez Z3A.19 19 weeks gestation of 12/22/2017 Tammy Martinez Z34.83 Encounter for suprvsn of normal , third trimester 12/22/2017 Tammy Martinez Z3A.32 32 weeks gestation of 01/09/2018 Tammy Martinez Z34.83 Encounter for suprvsn of normal , third trimester 01/09/2018 Tammy Martinez Z3A.35 35 weeks gestation of Procedures Code Description [place] [address] Ultrasnd 08/16/2015 exam, preg uterus, limited 04307 Ultrasnd preg 10/11/2015 uterus, flwup/repeat 52354 Ultrasnd exam 09/18/2017 of preg uterus, compl 33767 OB Visit No 09/18/2017 Charge 39111 Immuniz 09/18/2017 radha, 1 vac, sngl/combo 83830 Flu Vaccine - 09/18/2017 Quadrivalent 61352 Ultrasnd preg 12/22/2017 uterus, flwup/repeat 62349 OB Visit No 01/09/2018 Charge Results There is no data. Encounters ACCT No. Visit Discharge Status Pt. Type Provider Facility Loc./Unit Complaint Date/Time [id number] 01/30/2018 01/30/2018 CLS Outpatient Sobbing, 14:30:00 23:59:59 Naman L [id number] 01/23/2018 01/23/2018 CLS Outpatient Michelle, 15:15:00 23:59:59 Tammy L [id number] 01/09/2018 01/09/2018 CLS Outpatient Michelle, 13:25:00 23:59:59 Tammy L [id number] 12/22/2017 12/22/2017 CLS Outpatient Michelle, 08:25:00 23:59:59 Tammy L [id number] 12/22/2017 12/22/2017 CLS Outpatient Michelle, 08:15:00 23:59:59 Tammy L [id number] 12/12/2017 12/12/2017 CLS Outpatient Michelle, 13:25:00 23:59:59 Tammy L [id number] 11/17/2017 11/17/2017 CLS Outpatient Michelle, 08:55:00 23:59:59 Tammy L [id number] 10/17/2017 10/17/2017 CLS Outpatient Michelle, 15:15:00 23:59:59 Tammy L [id number] 09/18/2017 09/18/2017 CLS Outpatient Michelle, 16:15:00 23:59:59 Tammy L [id number] 09/18/2017 09/18/2017 CLS Outpatient Michelle, 15:45:00 23:59:59 Tammy L [id number] 08/14/2017 08/14/2017 CLS Outpatient Michelle, 16:00:00 23:59:59 Tammy L [id number] 07/18/2017 07/18/2017 CLS Outpatient Michelle, 08:15:00 23:59:59 Tammy L [id number] 07/16/2017 07/16/2017 CLS Outpatient Michelle, 15:45:00 23:59:59 Tammy L [id number] 12/05/2015 12/05/2015 CLS Outpatient Michelle, 10:30:00 23:59:59 Tammy L [id number] 11/15/2015 11/15/2015 CLS Outpatient Michelle, 22:06:00 23:59:59 Tammy L [id number] 10/28/2015 10/28/2015 CLS Outpatient Michelle, 01:09:00 23:59:59 Tammy L [id number] 10/23/2015 10/23/2015 CLS Outpatient Michelle, 09:55:00 23:59:59 Tammy L [id number] 10/17/2015 10/17/2015 CLS Outpatient Michelle, 16:30:00 23:59:59 Tammy L [id number] 10/11/2015 10/11/2015 CLS Outpatient Michelle, 08:30:00 23:59:59 Tammy L [id number] 10/11/2015 10/11/2015 CLS Outpatient Michelle, 08:15:00 23:59:59 Tammy L [id number] 10/10/2015 10/10/2015 CLS Outpatient Michelle, 11:15:00 23:59:59 Tammy L [id number] 10/04/2015 10/04/2015 CLS Outpatient Michelle, 11:30:00 23:59:59 Tammy L [id number] 09/26/2015 09/26/2015 CLS Outpatient Michelle, 11:30:00 23:59:59 Tammy L [id number] 09/13/2015 09/13/2015 CLS Outpatient Michelle, 10:30:00 23:59:59 Tammy L [id number] 08/29/2015 08/29/2015 CLS Outpatient Michelle, 11:30:00 23:59:59 Tammy L [id number] 08/16/2015 08/16/2015 CLS Outpatient Michelle, 14:50:00 23:59:59 Tammy L [id number] 08/16/2015 08/16/2015 CLS Outpatient Michelle, 14:15:00 23:59:59 Tammy L [id number] 07/26/2015 07/26/2015 CLS Outpatient Michelle, 15:40:00 23:59:59 Tammy Nunes
--- OUTSIDE RECORDS SUMMARY | 2018-02-05 17:06 | External Medical Summary | Continuity of Care Document ---
:1990 Author Organization [facility] Address [address] [place], [place] [phone] Phone Care Team Providers Name Role Phone [...] third trimester 32 weeks gestation of - Encntr screen for [...] suprvsn of normal - , third trimester 35 weeks gestation of - Encounter for suprvsn of normal - , third trimester 31 weeks gestation of - Encounter for suprvsn of normal - , third trimester 32 weeks gestation of - Initiation of Oral Contraceptives - Active Irregular Bleeding Active Active Procedures Procedure Date Ultrasnd preg uterus, flwup/repeat Results Test Name Date and Time Measure Units Reference Range Abnormal Flag Comments Unknown Advance Directives Directive Yes / No Effective Date File Name Unknown Encounters Encounter Practice Location Reason(s) Diagnoses Date Provider Care Team Description For Visit Members Jennifer Tatum Encounter for Jan- Michelle Referring In Womens suprvsn of normal 9-201 Tammy. Provider: Alysia LAYTON, , third 8 700 Tammy [address] [email or web address] weeks Medical Michelle L, 1522, gestation of [address], Dr [facility] [place], 120, [place] [id number], Rc [facility] 120, [place] Rc [place], tel:+ [phone] [place], [id number] , . [id number]. tel: tel: [phone] Jennifer Tatum Encounter for Dec- Michelle Referring In Womens suprvsn of normal 2-201 Tammy. Provider: Alysia LAYTON, , third 8 700 Justine [address] [email or web address] weeks Medical Jc, 700 1522, [facility] , [facility] [place], 120, [place] 120, [id number], Rc [place], [place], tel: [phone]. , . tel: tel: [phone] Jennifer Tatum Encounter for Dec- Michelle Referring In Womens Ultrasound suprvsn of normal 2-201 Tammy. Provider: Alysia LAYTON, , third 8 700 Justine PO Box weeks Medical Jc, 700 1522, gestation of [facility], , [facility] Dr [place], 120, [place] 120, [id number], Rc T[place], [facility], [place], tel: [phone]. , [place]. tel: tel: [phone] Jennifer Tatum Encounter for Stan-1 Michelle Referring In Womens suprvsn of normal 2-201 Tammy. Provider: Health PA, , third 8 700 Justine [address] Box [email or web address] weeks Medical Jc, 700 1522, gestation of [facility], , [facility] Dr [place], 120, [place] 120, [id number], Rc [place], [facility], [place], tel: [phone]. , [place]. tel: tel: [phone] Tatum Encounter for Dec-1 Michelle Referring In Womens suprvsn of normal 8-201 Tammy. Provider: Health PA, , second 7 700 Justine PO Box [email or web address] weeks Medical Jc, 700 1522, gestation of [facility], , [facility] Dr [place], 120, [place] 120, [id number], Rc T[place], [facility], [place], tel: [phone]. , [place]. tel: tel: [phone] Tatum Encounter for Nov-1 Michelle Referring In Womens suprvsn of normal 7-201 Tammy. Provider: Health PA, , second 7 700 Justine PO Box weeks Medical Jc, 700 1522, gestation of [facility], , [facility] Dr [place], 120, [place] 120, [id number], Rc T[place], [facility], [place], tel: [phone]. , [place]. tel: tel: [phone] Tatum Encounter for Oct-1 Michelle Referring In Womens suprvsn of normal 9-201 Tammy. Provider: Health PA, , second 7 700 Justine PO Box [email or web address] weeks Medical Jc, 700 1522, gestation of [facility], , [facility] Dr [place], 120, [place] 120, [id number], Rc Tatum, [place], tel: [phone]. , [place]. tel: tel: [phone] Jennifer Tatum Encounter for Oct-1 Michelle Referring In Womens Ultrasound suprvsn of normal 9-201 Tammy. Provider: Health CALIN, , second 7 700 Justine PO Box [email or web address] weeks Medical Jc, 700 1522, gestation of [facility], , [facility] Dr [place], 120, [place] 120, , Rc Tatum, [place], tel: [phone]. , [place]. tel: tel: [phone] Jennifer Tatum Encounter for Sep-1 Michelle Referring In Womens suprvsn of normal 4-201 Tammy. Provider: Alysia LAYTON, , second 7 700 Justine PO Box [email or web address] weeks Medical Jc, 700 1522, gestation of [facility], , [facility] Dr [place], 120, [place] 120, [id number], Rc Tatum, [place], tel: [phone]. , [place]. tel: tel: [phone] Jennifer Tatum Encntr screen for Aug-1 Michelle Referring In Womens infections w sexl 6-201 Tammy. Provider: Alysia LAYTON, mode of 7 700 Justine PO Box [email or web address] Medical Jc, 700 1522, r for screening [facility], for oth , [facility] Dr [place], infec/parastc 120, [place] 120, , diseasesEncounter Rc T[place], for suprvsn of [place], [place], tel:[phone] , [phone]. first , [place]. tel: trimesterEncounte tel: [phone] r for [phone] screening of hoevve06 weeks gestation of Associates Rc Stan-0 Michelle Referring In Womens Follow-Up, 5-201 Tammy. Provider: Alysia LAYTON, Routine 6 700 Justine PO Box Medical Jc, 700 1522, [place] [address], [facility] [place], 120, [place] 120, [id number], [place], [place], tel:+ [phone]. , [place]. tel: tel: [phone] Jennifer Tatum Oct-1 Michelle Referring In Womens 4-201 Tammy. Provider: Alysia LAYTON, 5 700 Tammy PO Box Medical Michelle L, 1522, [address], [facility] [place], 120, [place] [id number], Rc, [facility] 120, [place], tel:+ [phone] [place], , [place]. [id number]. tel: tel: [phone] Jennifer Tatum Sep-2 Michelle Referring In Womens 9-201 Tammy. Provider: Alysia LAYTON, 5 700 Tammy PO Box Medical Michelle L, 1522, Center [facility] Dr Mara, [facility] [place], 120, [place] [id number], Rc, [facility] 120, [place], tel:+ [phone] [place], , [place]. [id number]. tel: tel: [phone] Jennifer Tatum Mar-2 Michelle Referring In Womens 8-201 Tammy. Provider: Alysia LAYTON, 5 700 Justine PO Box Medical Jc, 700 1522, [place] [address], [facility] [place], 120, [place] 120, [id number], R[place], [place], tel:[phone]. , [place]. tel: tel: [phone] Jennifer Tatum Apr-0 Jc Referring In Womens 7-201 Justine. Provider: Alysia LAYTON, 4 700 Justine PO Box Medical Jc, 700 1522, [address], [facility] Dr [place], 120, [place] 120, [id number], Rc T[place], [place], tel: [phone]. [id number] , . tel: tel: [phone] Family History Family Member Diagnosis Age At [...] Venous Thrombosis Immunizations Vaccine Date Status Comments Tdap completed Source: New Immunization Record Influenza, injectable, completed Source: New Immunization Record quadrivalent, preservative free, 3 yrs or older Influenza, seasonal, injectable, completed Source: New Immunization Record preservative free, 3 yrs or older Tdap completed Source: New Immunization Record Payers Payer name Insurance type Covered green party ID Authorization(s) [facility] [place] [id number] [facility] [place] [id number] [employer] [place] [id number] [employer] [place] [id number] [facility] [place] [id number] Social History Type Description Quantity Date Captured [...] Emily Rich BOOKED Future Order: Radiology Order Ultrasound OB Follow-up ([id number]) Ordered Future Order: Lab Order Pap Smear With HPV Reflex If ASCUS Ordered ([id number]) Future Order: Radiology Order Complete OB Ultrasound > 14 Ordered Weeks ([id number]) Date Type Problem Goal Intervention Status Start [...]
[2018-02-05] MEDS ORDERED: MAG-AL + SIM ORAL LIQUID 30ml PO PRN ×2 (17:27→22:48)
[2018-02-05] MEDS ORDERED: CARBOPROST 250 MCG/ML INJECTION IM PRN (17:27)
[2018-02-05] MEDS ORDERED: METHYLERGONOVINE 0.2 MG/ML INJECTION IM PRN (17:27)
[2018-02-05] MEDS ORDERED: CALCIUM CARBONATE Chewable 500mg TABLET PO PRN ×2 (17:27→22:48)
[2018-02-05] MEDS ORDERED: ACETAMINOPHEN 500 MG TABLET PO PRN ×2 (17:27→22:48)
[2018-02-05] MEDS ORDERED: D5LR 1,000 ML IV SCH (17:30)
[2018-02-05] MEDS ORDERED: AMPICILLIN 2 GM in NS 100 ML IV ONE (17:31)
[2018-02-05] MEDS: LR 1,000 ML IV PRN ×2 (17:44→21:00)
[2018-02-05] MEDS ORDERED: ROPIVACAINE 1% 10MG/ML INJ 200 MG, SUFentanil 50 MCG in NS 100 ML EPI PRN (18:01)
[2018-02-05] MEDS ORDERED: NALOXONE 0.4 MG/ML INJECTION IVP PRN (18:01)
[2018-02-05] MEDS ORDERED: DiphenhydrAMINE 50 MG/ML INJECTION IVP PRN (18:01)
[2018-02-05] MEDS ORDERED: ONDANSETRON 4 MG/2 ML INJECTION IVP PRN (18:01)
--- NOTE | 2018-02-05 18:01 | Anesthesia Preoperative Report ---
Anesthesia Epidural/Spinal Rec - Date and Time Date: 02/05/18 Procedure: Labor Epidural Plan: Epidural - Vital Signs Vital Signs: Temperature 98.3 F 02/05/18 17:47 Pulse Rate 100 02/05/18 17:47 Respiratory Rate 20 02/05/18 17:47 Blood Pressure 112/71 02/05/18 17:47 Pulse Oximetry 92 02/05/18 17:47 NPO since: 1100 /Para: P:1 - Medictaions & Allergies Inpatient Medications: Current Medications Acetaminophen (Tylenol) 500 - 1,000 mg PO Q4H PRN PRN Reason: Pain Al Hydroxide/Mg Hydroxide (Maalox Plus) 30 ml PO Q3H PRN PRN Reason: Indigestion Calcium Carbonate (Tums) 500 - 1,000 mg PO Q2H PRN PRN Reason: Indigestion Carboprost Tromethamine (Hemabate) 250 mcg IM O PRN PRN Reason: .Downtime Dextrose/Lactated Ringer's (Dextrose 5%-Lactated Ringers) 1,000 mls @ 125 mls/ hr IV .Q8H NIKITA Lactated Ringer's (Lactated Ringers) 1,000 mls @ 999 mls/hr IV .Q1H1M PRN Last Admin: 02/05/18 17:44 Dose: 999 mls/hr Ampicillin Sodium 1 gm/ Sodium (Chloride) 100 mls @ 200 mls/hr IV Q4H NIKITA Methylergonovine Maleate (Methergine) 0.2 mg IM O PRN Misoprostol (Cytotec) 800 mcg VT ONCE PRN Allergies/Adverse Reactions: Allergies Allergy/AdvReac Type Severity Reaction Status Date / Time Sulfa (Sulfonamide Allergy Mild Verified 09/26/15 12:49 Antibiotics) - Home Medications Home Medications: Home Medications Medication Instructions Recorded Confirmed Type Docosahexanoic Acid [ Dha] 1 cap PO DAILY #0 cap 09/26/15 History Cetirizine [Zyrtec] 10 mg PO PRN PRN 01/22/18 01/22/18 History Pnv No.95/Ferrous Fum/Folic AC 1 each PO DAILY 01/22/18 01/22/18 History [ Tablet] - Medical History Neuro/Musculoskeletal: Denies: Depression Other History: Reports: Now DENIES: Anesthesia Reactions - Surgical History HEENT Surgeries: Reports: Other (adenoids removed in 3rd grade) Reproductive Surgery/Treatment: DENIES: Section Anesthesia Reactions: None Hx Family Anesthesia Reaction: No History of Motion Sickness: No - Social History Smoking Status: Never smoker Second Hand Exposure: No Substance Use Type: does not use Alcohol Intake Frequency: does not drink - Physical Exam Respiratory Exam: lungs clear Cardiovascular Exam: regular rate and rhythm - Airway Assessment Mallampati Score: I TMD: 3 Fingerbreadths Neck Extension: good Overall Assessment: no airway concerns - ASA ASA Score: 2 - Discussion Discussion: Discussed risks/options/alternatives of anesthesia and questions answered. Patient consents. Nursing pain assessment noted. Anesthesia Discussion: family member Attestation Statement: Prior to the delivery of any anesthetic medication, I examined the patient, developed the plan, obtained the patient's consent and discussed the risk and benefits of the procedure with the patient/guardian.
[2018-02-05] MEDS ORDERED: AMPICILLIN 1 GM in NS 100 ML IV SCH (21:30)
[2018-02-05] MEDS ORDERED: OXYTOCIN DRIP 30 UNIT/500 ML ML IV PRN (21:36)
[2018-02-05 21:41] VITALS: BMI 23.8
[2018-02-05] MEDS ORDERED: HYDROCORTISONE 2.5% CREAM 30gm RECTALLY PRN (22:48)
[2018-02-05] MEDS ORDERED: DiphenhydrAMINE 25 MG CAPSULE PO PRN (22:48)
[2018-02-05] MEDS ORDERED: HYDROCODONE/APAP 5mg/325mg TABLET PO PRN (22:48)
--- NOTE | 2018-02-05 22:52 | OB/GYN Procedure Note ---
Delivery date: 02/05/18 Delivery augmentation: rupture of membranes, pitocin Delivery monitor: external FHT, external uterine, internal uterine Route of delivery: Episiotomy description: None Laceration description: Perineal - 2nd Degree Delivery repair: vicryl, chromic Anesthesia type: Epidural Disposition: floor - Baby 1 gender: Male presentation: Vertex Placenta delivery description: Spontaneous cord vessel description: 3 Vessels at 1 minute: 8 at 5 minutes: 9
[2018-02-06] MEDS: IBUPROFEN 800 MG TABLET PO PRN ×3 (00:54→20:59)
--- NOTE | 2018-02-06 08:22 | OB/GYN Progress Note ---
OB-PP Progress Note - General PPD1 - Subjective Date: 02/06/18 Lochia: Minimal Pain: controlled Voiding: voiding Nausea or Vomiting Present: No - Objective Vital Signs: Last Vital Signs Temp 98.3 F 02/06/18 02:30 Pulse 86 02/06/18 02:30 Resp 18 02/06/18 02:30 BP 90/58 02/06/18 02:30 Pulse Ox 97 02/06/18 02:30 General: alert and oriented Abdomen: fundus firm, non-tender Laboratory: Laboratory Results - last 24 hr 02/05/18 02/06/18 17:52 06:16 WBC 13.9 H 15.4 H RBC 4.10 3.53 L Hgb 12.5 10.8 L D Hct 37.8 32.5 L D MCV 92.2 92.1 MCH 30.5 30.6 MCHC 33.1 33.2 RDW Std Deviation 45.8 45.1 Plt Count 243 207 MPV 11.0 10.9 - Assessment Assessment: SP, - Plan Plan: routine care
[2018-02-06] MEDS ORDERED: DOCUSATE CALCIUM 240 MG CAPSULE PO SCH (09:00)
--- NOTE | 2018-02-06 11:07 | Labor and Delivery Note ---
DATE OF DELIVERY: 02/05/2018 DELIVERY NOTE This is a G2, P1, 39 weeks and 1 day - dated by a first trimester ultrasound, who showed up to Labor & Delivery after being seen earlier in the office and suspicion for latent phase labor. The patient arrived on the Maternal Child Unit and was noted to be 4 cm which is a change from 2.5 cm which was seen earlier in the office today. Ampicillin antibiotic was started for GBS positive and the patient was admitted. The patient continued to progress to approximately 6 cm and approximately 2 hours after the antibiotics was started artificial rupture of membranes was performed. She then progressed to 7 cm but , unfortunately, over 2 hours stalled out. An IUPC was placed and it was noted that patient was not adequate on contractions and Pitocin was started. She got to a max of 2 milliunits of Pitocin and progressed to complete and +4 station. She pushed approximately with two contractions and delivered a viable male with the name of Shaw Rich over an intact perineum with epidural anesthesia. There was a nuchal cord that was loose and reduced x 1. There was spontaneous delivery of the placenta and active management of the third stage of labor with Pitocin. The patient had a history of uterine atony and no atony was diagnosed at this time. She had a right perineal second- degree laceration which had some significant brisk bleeding which was repaired in the usual fashion. Approximate EBL was 800 ml and she also had a midline periclitoral first-degree laceration that was repaired with 3-0 Vicryl. Vaginal sweep was performed. Apgars were noted to be 8/9/9 and a weight of 3500 grams and a length of 20 inches long. The patient and tolerated the procedure well and remained in the recovery room for recovery. ROBER
[2018-02-06 17:51] VITALS: O2SAT 98
--- NOTE | 2018-02-07 10:03 | Progress Note ---
OB PP Progress Note Free Text - Date Date: 02/07/18 - Progress Note Progress Note: doing well vss af instructions given f/u 5-6 wks q&a
[2018-02-07 20:33] VITALS: BP 97/69; PULSE 83; RESP 16; TEMP 98.5
== END 2018-02-07 18:00 | disposition home or self-care (01) | DRG 775 ==
LOC: MC 16:59
PROVIDERS: ADMIT Obstetrics & Gynecology; ATTEND Obstetrics & Gynecology